=== PATIENT | female | born 1950 | race Caucasian/White ===

== ENCOUNTER 2017-12-19 10:38 | Inpatient (IN) | payer SELFPAY ==
[~2017-12-19] VITALS: Ht 170.2 cm; Wt 77.1 kg
[2017-12-19] VITALS (12 sets, daily range): BP systolic 70–93; BP diastolic 43–66
[2017-12-19] MEDS ORDERED: SODIUM CHLORIDE 0.9% 1,000 ML IV ONE (11:00)
[2017-12-19 11:20] LABS: BASOPHILS % 0.6 % (0.0-2.0); HEMATOCRIT. 39.4 % (36.0-48.0); HEMOGLOBIN. 13.2 g/dL (12.0-16.0); LYMPHOCYTES % 25.8 % (20.0-50.0); MEAN CORPUSCULAR HEMOGLOBIN 31.7 pg (28.0-32.0); MEAN CORPUSCULAR VOLUME 94.6 fL (81.0-99.0); MEAN PLATELET VOLUME 8.9 fl (7.4-10.4); MONOCYTES % 7.4 % (2.0-8.0); NEUTROPHILS % 64.2 % (40.0-76.0); PLATELET 258 x1000/uL (130-400); RED BLOOD CELL COUNT 4.16 mill/uL (4.2-5.4)
[2017-12-19 11:25] LABS: CHLORIDE 104 mEq/L (98-107)
[2017-12-19 11:27] LABS: INR 1.1; PROTHROMBIN TIME 11.4 sec (9.4-11.6)
[2017-12-19] MEDS ORDERED: GUAIFENESIN 200MG/10ML SUGAR FREE UDC PO PRN (14:00)
[2017-12-19] MEDS ORDERED: DOCUSATE SODIUM 100MG CAPSULE PO PRN (14:00)
[2017-12-19] MEDS ORDERED: ENOXAPARIN 40MG/0.4ML SYR SUBCUT SCH (14:00)
[2017-12-19] MEDS ORDERED: IPRATROPIUM/ALBUTEROL 0.5-3(2.5)MG/3ML NEB INH PRN (14:00)
[2017-12-19] MEDS ORDERED: ONDANSETRON HCL 4MG/2ML VIAL IV PRN (14:00)
[2017-12-19] MEDS ORDERED: CLONIDINE 0.1MG TABLET PO PRN (14:00)
[2017-12-19] MEDS ORDERED: MAGNESIUM/ALUMINUM HYDROXIDE/SIMETHICONE 30ML UDC PO PRN (14:00)
[2017-12-19] MEDS ORDERED: ACETAMINOPHEN 325MG TABLET PO PRN (14:00)
[2017-12-19] MEDS ORDERED: NITROGLYCERIN 0.4MG TABLET SL SL PRN (14:00)
[2017-12-19] MEDS ORDERED: DIPHENHYDRAMINE 50MG/ML VIAL IV PRN (14:00)
[2017-12-19] MEDS ORDERED: POTASSIUM CHLORIDE 20MEQ TABLET SR PO SCH ×2 (14:00→21:16)
[2017-12-19] MEDS ORDERED: NA PHOS,M-B/NA PHOS,DI-BA ENEMA 118ML PR PRN (14:00)
[2017-12-19] MEDS ORDERED: HEPARIN 25,000 UNITS PREMIX 500 ML IV SCH ×4 (16:30→23:15)
[2017-12-19] MEDS ORDERED: HEPARIN 5000 UNITS/ML VIAL IV ONE (16:30)
[2017-12-19] MEDS ORDERED: IOHEXOL-300 100 ML BOTTLE ONE (16:38)
[2017-12-19] MEDS ORDERED: HEPARIN BOLUS PRN aPTT <36 IV ×2 (18:30→23:30)
[2017-12-19] MEDS ORDERED: HEPARIN 80 UNITS/KG BOLUS IV SCH (18:30)
[2017-12-19] MEDS ORDERED: HEPARIN BOLUS PRN aPTT 37-44 IV ×2 (18:30→23:30)
[2017-12-19] MEDS ORDERED: ZOLPIDEM TARTRATE 5MG TABLET PO PRN (22:30)
[2017-12-19] MEDS ORDERED: MORPHINE SULFATE 4 MG/ML CPJ (NOT FOR IM USE) IV PRN (23:01)
[2017-12-19] MEDS ORDERED: KETOROLAC 15MG/ML VIAL IV PRN (23:02)
[2017-12-19] MEDS ORDERED: LORAZEPAM 0.5MG TABLET PO PRN (23:03)
[2017-12-20] VITALS (54 sets, daily range): BP systolic 72–142; BP diastolic 30–80
[2017-12-20] MEDS ORDERED: NOREPINEPHRINE 4 MG in SODIUM CHLORIDE 0.9% 250 ML IV PRN ×2
[2017-12-20] MEDS ORDERED: VANCOMYCIN 1,500 MG in SODIUM CHLORIDE 0.9% 250 ML IV SCH ×2
[2017-12-20] MEDS: SODIUM CHLORIDE 0.9% 1,000 ML IV SCH ×2 (01:27→13:56)
[2017-12-20] MEDS: PIPERACILLIN/TAZ 3.375G PREMIX 50 ML IV SCH ×4 (01:27→22:15)
[2017-12-20] MEDS: ALBUMIN HUMAN 25GM/100ML (25%) IV SCH ×3 (07:10→21:14)
[2017-12-20] MEDS: PANTOPRAZOLE SODIUM 40 MG/VIAL IV SCH (09:17)
[2017-12-20] MEDS: VANCOMYCIN 1 G PREMIX 200 ML IV SCH ×2 (12:03→23:18)
[2017-12-20 18:45] LABS: CLARITY URINE CLOUDY (CLEAR); COLOR URINE YELLOW (YELLOW); KETONES URINE NEGATIVE (NEGATIVE); LEUKOCYTE ESTERASE URINE 2+ (NEGATIVE); NITRITE URINE POSITIVE (NEGATIVE); OCCULT BLOOD URINE NEGATIVE (NEGATIVE); PH URINE 5.5 (4.5-8.0); PROTEIN URINE NEGATIVE (NEGATIVE); SPECIFIC GRAVITY URINE 1.035 (1.005-1.030)
[2017-12-20 19:07] LABS: *AMPHETAMINES SCREEN URINE NEGATIVE (NEGATIVE); *BARBITURATES SCREEN URINE NEGATIVE (NEGATIVE); *BENZODIAZEPINES SCREEN URINE NEGATIVE (NEGATIVE); *COCAINE SCREEN URINE NEGATIVE (NEGATIVE); CANNABINOID URINE SCREEN NEGATIVE (NEGATIVE); METHADONE URINE SCREEN NEGATIVE (NEGATIVE); OPIATES URINE SCREEN NEGATIVE (NEGATIVE); PHENCYCLIDINE URINE SCREEN NEGATIVE (NEGATIVE)
[2017-12-21] VITALS (20 sets, daily range): BP systolic 90–155; BP diastolic 51–90
[2017-12-21] MEDS: SODIUM CHLORIDE 0.9% 1,000 ML IV SCH ×3 (03:54→17:51)
[2017-12-21] MEDS: PIPERACILLIN/TAZ 3.375G PREMIX 50 ML IV SCH ×3 (05:04→23:49)
[2017-12-21] MEDS: PANTOPRAZOLE SODIUM 40 MG/VIAL IV SCH (08:24)
[2017-12-21 09:10] LABS: BASOPHILS % 1.2 % (0.0-2.0); EOSINOPHILS % 3.6 % (0.0-5.0); HEMATOCRIT. 31.1 % (36.0-48.0); HEMOGLOBIN. 10.3 g/dL (12.0-16.0); LYMPHOCYTES % 25.6 % (20.0-50.0); MEAN CORPUSCULAR HEMOGLOBIN 31.6 pg (28.0-32.0); MEAN CORPUSCULAR VOLUME 95.3 fL (81.0-99.0); MEAN PLATELET VOLUME 9.5 fl (7.4-10.4); MONOCYTES % 4.8 % (2.0-8.0); NEUTROPHILS % 64.8 % (40.0-76.0); PLATELET 196 x1000/uL (130-400); RED BLOOD CELL COUNT 3.27 mill/uL (4.2-5.4); RED CELL DISTRIBUTION WIDTH 14.9 % (11.6-14.6)
[2017-12-21 09:12] LABS: CHLORIDE 113 mEq/L (98-107)
[2017-12-21] MEDS: VANCOMYCIN 1 G PREMIX 200 ML IV SCH (11:29)
[2017-12-21] MEDS ORDERED: ENOXAPARIN 80MG/0.8ML SYR SUBCUT SCH (12:00)
[2017-12-21] MEDS: ENOXAPARIN 80MG/0.8ML SYR SUBCUT SCH (13:13)
[2017-12-21] MEDS ORDERED: WARFARIN SODIUM 5MG TABLET PO SCH (18:00)
[2017-12-22 00:20] VITALS: BP 96/51
[2017-12-22] MEDS: ENOXAPARIN 80MG/0.8ML SYR SUBCUT SCH ×2 (00:52→13:20)
[2017-12-22] MEDS: VANCOMYCIN 1 G PREMIX 200 ML IV SCH (00:53)
[2017-12-22] MEDS: SODIUM CHLORIDE 0.9% 1,000 ML IV SCH ×2 (02:09→17:43)
[2017-12-22 04:00] VITALS: BP 105/52
[2017-12-22] MEDS: PIPERACILLIN/TAZ 3.375G PREMIX 50 ML IV SCH ×3 (05:33→22:09)
[2017-12-22] MEDS: TRAMADOL 50MG TABLET PO PRN ×2 (05:44→20:54)
[2017-12-22 07:35] LABS: INR 1.2; PROTHROMBIN TIME 12.7 sec (9.4-11.6)
[2017-12-22 08:00] VITALS: BP 111/62
[2017-12-22] MEDS: PANTOPRAZOLE SODIUM 40 MG/VIAL IV SCH (08:23)
[2017-12-22 12:00] VITALS: BP 99/64
[2017-12-22 16:00] VITALS: BP 117/49
[2017-12-22] MEDS: VANCOMYCIN 1,250 MG in SODIUM CHLORIDE 0.9% 250 ML IV SCH (17:24)
[2017-12-22] MEDS ORDERED: WARFARIN SODIUM 7.5MG TABLET PO SCH (18:00)
[2017-12-22 20:00] VITALS: BP 86/52
[2017-12-23] VITALS: BP 90/48
[2017-12-23] MEDS: ENOXAPARIN 80MG/0.8ML SYR SUBCUT SCH ×2 (00:32→12:51)
[2017-12-23] MEDS: SODIUM CHLORIDE 0.9% 1,000 ML IV SCH ×2 (03:43→12:49)
[2017-12-23 04:00] VITALS: BP 101/65
[2017-12-23] MEDS: PIPERACILLIN/TAZ 3.375G PREMIX 50 ML IV SCH ×3 (05:37→22:21)
[2017-12-23 06:14] LABS: INR 1.6; PROTHROMBIN TIME 16.6 sec (9.4-11.6)
[2017-12-23 08:00] VITALS: BP 98/48
[2017-12-23] MEDS: FAMOTIDINE 20MG TABLET PO SCH ×2 (08:26→20:07)
[2017-12-23 12:00] VITALS: BP 99/51
[2017-12-23] MEDS: VANCOMYCIN 1,250 MG in SODIUM CHLORIDE 0.9% 250 ML IV SCH (12:50)
[2017-12-23 16:00] VITALS: BP 110/60
[2017-12-23] MEDS: TRAMADOL 50MG TABLET PO PRN (17:26)
[2017-12-23 20:00] VITALS: BP 98/59
[2017-12-24] VITALS: BP 120/74
[2017-12-24] MEDS: ENOXAPARIN 80MG/0.8ML SYR SUBCUT SCH ×2 (00:56→12:49)
[2017-12-24 04:00] VITALS: BP 120/72
[2017-12-24 04:07] LABS: BASOPHILS % 0.8 % (0.0-2.0); EOSINOPHILS % 3.6 % (0.0-5.0); HEMOGLOBIN. 9.8 g/dL (12.0-16.0); LYMPHOCYTES % 25.6 % (20.0-50.0); MEAN CORPUSCULAR HEMOGLOBIN 32.1 pg (28.0-32.0); MEAN CORPUSCULAR VOLUME 95.3 fL (81.0-99.0); MEAN PLATELET VOLUME 9.3 fl (7.4-10.4); MONOCYTES % 7.5 % (2.0-8.0); NEUTROPHILS % 62.5 % (40.0-76.0); PLATELET 238 x1000/uL (130-400); RED BLOOD CELL COUNT 3.04 mill/uL (4.2-5.4)
[2017-12-24 04:18] LABS: VANCOMYCIN TROUGH 23.2 ug/mL (5.0-10.0)
[2017-12-24] MEDS: TRAMADOL 50MG TABLET PO PRN ×2 (04:38→16:08)
[2017-12-24] MEDS: SODIUM CHLORIDE 0.9% 1,000 ML IV SCH ×3 (05:40→18:54)
[2017-12-24] MEDS: VANCOMYCIN 1,250 MG in SODIUM CHLORIDE 0.9% 250 ML IV SCH (05:40)
[2017-12-24] MEDS: PIPERACILLIN/TAZ 3.375G PREMIX 50 ML IV SCH ×3 (05:40→21:32)
[2017-12-24 08:00] VITALS: BP 109/67
[2017-12-24] MEDS: FAMOTIDINE 20MG TABLET PO SCH ×2 (08:24→20:30)
[2017-12-24 12:00] VITALS: BP 95/58
[2017-12-24] MEDS ORDERED: POTASSIUM CHLORIDE 20MEQ TABLET SR PO NR (12:30)
[2017-12-24 16:00] VITALS: BP 106/54
[2017-12-24 20:00] VITALS: BP 109/73
[2017-12-25] VITALS (7 sets, daily range): BP systolic 93–119; BP diastolic 52–70
[2017-12-25] MEDS: ENOXAPARIN 80MG/0.8ML SYR SUBCUT SCH ×2 (01:00→14:31)
[2017-12-25] MEDS: VANCOMYCIN 1 G PREMIX 200 ML IV SCH ×2 (02:22→20:47)
[2017-12-25] MEDS ORDERED: TRAMADOL 50MG TABLET PO PRN ×2 (05:30→19:00)
[2017-12-25] MEDS: PIPERACILLIN/TAZ 3.375G PREMIX 50 ML IV SCH ×3 (05:37→22:25)
[2017-12-25] MEDS: SODIUM CHLORIDE 0.9% 1,000 ML IV SCH ×2 (06:37→18:07)
[2017-12-25] MEDS: FAMOTIDINE 20MG TABLET PO SCH ×2 (08:11→20:47)
[2017-12-25] MEDS ORDERED: KETOROLAC 15MG/ML VIAL IV PRN (19:00)
[2017-12-26] MEDS: ENOXAPARIN 80MG/0.8ML SYR SUBCUT SCH ×2 (00:30→16:30)
[2017-12-26 04:00] VITALS: BP 123/69
[2017-12-26] MEDS: PIPERACILLIN/TAZ 3.375G PREMIX 50 ML IV SCH ×3 (05:29→21:03)
[2017-12-26 08:00] VITALS: BP 119/69
[2017-12-26] MEDS: SODIUM CHLORIDE 0.9% 1,000 ML IV SCH ×2 (09:02→19:35)
[2017-12-26] MEDS: FAMOTIDINE 20MG TABLET PO SCH ×2 (09:03→21:03)
[2017-12-26 11:59] VITALS: BP 118/68
[2017-12-26] MEDS: VANCOMYCIN 1 G PREMIX 200 ML IV SCH (15:00)
[2017-12-26 16:00] VITALS: BP 131/70
[2017-12-26 20:00] VITALS: BP 130/62
[2017-12-27] VITALS: BP 128/66
[2017-12-27] MEDS: ENOXAPARIN 80MG/0.8ML SYR SUBCUT SCH ×2 (01:22→13:54)
[2017-12-27 04:00] VITALS: BP 117/72
[2017-12-27] MEDS: CLINDAMYCIN HCL 150MG CAPSULE PO SCH ×3 (05:31→21:08)
[2017-12-27] MEDS: SODIUM CHLORIDE 0.9% 1,000 ML IV SCH ×2 (07:45→08:16)
[2017-12-27 08:00] VITALS: BP 99/69
[2017-12-27] MEDS: FAMOTIDINE 20MG TABLET PO SCH ×2 (08:15→21:08)
[2017-12-27 12:36] VITALS: BP 120/63
[2017-12-27 16:28] VITALS: BP 114/81
[2017-12-27 20:00] VITALS: BP 140/64
[2017-12-28] VITALS: BP 135/66
[2017-12-28] MEDS: ENOXAPARIN 80MG/0.8ML SYR SUBCUT SCH ×2 (00:23→12:22)
[2017-12-28 04:00] VITALS: BP 107/78
[2017-12-28] MEDS: SODIUM CHLORIDE 0.9% 1,000 ML IV SCH ×3 (04:02→21:46)
[2017-12-28] MEDS: CLINDAMYCIN HCL 150MG CAPSULE PO SCH ×3 (05:49→21:15)
[2017-12-28 08:00] VITALS: BP 103/59
[2017-12-28] MEDS: FAMOTIDINE 20MG TABLET PO SCH ×2 (08:28→21:15)
[2017-12-28 12:00] VITALS: BP 125/64
[2017-12-28 16:26] VITALS: BP 117/65
[2017-12-28 20:00] VITALS: BP 135/63
[2017-12-29] VITALS: BP 121/80
[2017-12-29] MEDS: ENOXAPARIN 80MG/0.8ML SYR SUBCUT SCH ×2 (01:01→12:14)
[2017-12-29 04:00] VITALS: BP 154/82
[2017-12-29] MEDS: CLINDAMYCIN HCL 150MG CAPSULE PO SCH ×3 (06:12→20:58)
[2017-12-29 08:20] VITALS: BP 123/67
[2017-12-29] MEDS: FAMOTIDINE 20MG TABLET PO SCH ×2 (08:34→20:58)
[2017-12-29] MEDS: SODIUM CHLORIDE 0.9% 1,000 ML IV SCH (08:35)
[2017-12-29 11:52] VITALS: BP 149/62
[2017-12-29 16:15] VITALS: BP 139/77
[2017-12-29 20:00] VITALS: BP 122/74
[2017-12-30] VITALS: BP 126/75
[2017-12-30] MEDS: ENOXAPARIN 80MG/0.8ML SYR SUBCUT SCH ×2 (00:56→12:37)
[2017-12-30 04:00] VITALS: BP 140/62
[2017-12-30] MEDS: CLINDAMYCIN HCL 150MG CAPSULE PO SCH ×3 (05:44→21:08)
[2017-12-30 08:00] VITALS: BP 123/65
[2017-12-30] MEDS: FAMOTIDINE 20MG TABLET PO SCH ×2 (09:06→21:08)
[2017-12-30 11:57] VITALS: BP 104/83
[2017-12-30 16:00] VITALS: BP 128/66
[2017-12-30 20:00] VITALS: BP_SYST 118; BP_SYST 152; BP_DIAS 65; BP_DIAS 82
[2017-12-31] VITALS: BP 120/80
[2017-12-31] MEDS: ENOXAPARIN 80MG/0.8ML SYR SUBCUT SCH ×2 (00:30→12:43)
[2017-12-31 04:00] VITALS: BP 117/67
[2017-12-31] MEDS: CLINDAMYCIN HCL 150MG CAPSULE PO SCH ×3 (05:11→21:36)
[2017-12-31 08:00] VITALS: BP 101/44
[2017-12-31] MEDS: FAMOTIDINE 20MG TABLET PO SCH ×2 (08:52→21:36)
[2017-12-31 12:00] VITALS: BP 121/68
[2017-12-31 16:00] VITALS: BP 135/52
[2017-12-31 20:00] VITALS: BP 106/59
[2018-01-01] VITALS: BP 103/70
[2018-01-01] MEDS: ENOXAPARIN 80MG/0.8ML SYR SUBCUT SCH ×2 (00:09→13:34)
[2018-01-01 04:00] VITALS: BP 130/80
[2018-01-01] MEDS: CLINDAMYCIN HCL 150MG CAPSULE PO SCH ×3 (05:19→20:48)
[2018-01-01 07:25] LABS: HEMATOCRIT. 27.5 % (36.0-48.0); HEMOGLOBIN. 9.2 g/dL (12.0-16.0); LYMPHOCYTES % 27.8 % (20.0-50.0); MEAN CORPUSCULAR HEMOGLOBIN 31.1 pg (28.0-32.0); MEAN CORPUSCULAR VOLUME 93.4 fL (81.0-99.0); MEAN PLATELET VOLUME 9.9 fl (7.4-10.4); MONOCYTES % 7.3 % (2.0-8.0); NEUTROPHILS % 55.9 % (40.0-76.0); PLATELET 254 x1000/uL (130-400); RED BLOOD CELL COUNT 2.95 mill/uL (4.2-5.4); RED CELL DISTRIBUTION WIDTH 15.1 % (11.6-14.6)
[2018-01-01 07:38] LABS: CHLORIDE 110 mEq/L (98-107)
[2018-01-01 08:00] VITALS: BP 137/69
[2018-01-01] MEDS: FAMOTIDINE 20MG TABLET PO SCH ×2 (09:37→20:48)
[2018-01-01] MEDS ORDERED: POTASSIUM CHLORIDE 20MEQ TABLET SR PO NR (10:00)
[2018-01-01] MEDS ORDERED: POTASSIUM CHLORIDE INJ 60 MEQ in DEXT 5% WATER 500 ML IV NR (11:00)
[2018-01-01 12:00] VITALS: BP 123/55
[2018-01-01 16:00] VITALS: BP 100/60
[2018-01-01] MEDS ORDERED: SODIUM CHL 0.45% + KCL 20MEQ/L 1,000 ML IV SCH (16:00)
[2018-01-01 20:00] VITALS: BP 104/58
[2018-01-02] VITALS: BP_SYST 103; BP_SYST 133; BP_DIAS 60; BP_DIAS 74
[2018-01-02] MEDS: ENOXAPARIN 80MG/0.8ML SYR SUBCUT SCH ×2 (00:45→12:53)
[2018-01-02 04:00] VITALS: BP 102/56
[2018-01-02] MEDS: CLINDAMYCIN HCL 150MG CAPSULE PO SCH ×2 (06:07→15:33)
[2018-01-02] MEDS: FAMOTIDINE 20MG TABLET PO SCH (09:05)
[2018-01-02] MEDS ORDERED: MAGNESIUM 2 G PREMIX 50 ML IV NR (10:30)
[2018-01-02 12:00] VITALS: BP 122/64
[2018-01-02 16:00] VITALS: BP 125/62
[2018-01-02 16:37] VITALS: BP 125/62
== END 2018-01-02 18:27 | disposition home or self-care (01) | DRG 134 ==
LOC: ER 10:42 → MICUNO 13:17 → CANRESERV 14:34 → ENRESERV 14:34 → CANRESERV 14:52 → EDBEDREQSVC 15:44 → EDBEDREQ 15:44 → ENRESERV 16:32 → 8WST 12-21 14:36
PROVIDERS: ADMIT Internal Medicine; ATTEND Internal Medicine
DX: I26.99 Other pulmonary embolism without acute cor pulmonale (principal); J96.00 Acute respiratory failure, unspecified whether with hypoxia or hypercapnia; E43 Unspecified severe protein-calorie malnutrition; I95.9 Hypotension, unspecified; D68.59 Other primary thrombophilia; I82.412 Acute embolism and thrombosis of left femoral vein; E87.6 Hypokalemia; I10 Essential (primary) hypertension; F17.210 Nicotine dependence, cigarettes, uncomplicated; Z85.3 Personal history of malignant neoplasm of breast; Z68.26 Body mass index [BMI] 26.0-26.9, adult
CPT/HCPCS: 36415; 71045; 71270; 80048; 80053; 80202; 80305; 81003; 82550; 82553; 83036; 83605; 83735; 84484; 85025; 85610; 85730; 87086; 93005; 93306; 93970; 94618; 96365; 97162; 99285; C1893; C9113; J1644; J1650; J1885; J2543; J3370; J3475; J3480; J7030; J7050; J7060; P9047; Q9967

== ENCOUNTER 2018-08-22 17:46 | Emergency (ER) | payer MEDICAID, MEDICARE ==
[~2018-08-22] VITALS: Ht 162.6 cm; Wt 60.0 kg
[2018-08-22] MEDS ORDERED: BACITRACIN 15GM TUBE TOP ONE (18:45)
[2018-08-22 20:12] VITALS: BP 120/83
== END 2018-08-22 20:28 | disposition home or self-care (01) ==
LOC: ER 17:46
DX: Z48.00 Encounter for change or removal of nonsurgical wound dressing (principal); C50.911 Malignant neoplasm of unspecified site of right female breast; C79.9 Secondary malignant neoplasm of unspecified site; R58 Hemorrhage, not elsewhere classified
CPT/HCPCS: 99283

== ENCOUNTER 2018-09-21 14:47 | Inpatient (IN) | payer MEDICARE, MEDICAID ==
[~2018-09-21] VITALS: Ht 160 cm; Wt 56.7 kg
[2018-09-21] MEDS ORDERED: FENTANYL CITRATE/PF 50MCG/ML 2ML VIAL IV ONE (15:30)
[2018-09-21] MEDS ORDERED: SODIUM CHLORIDE 0.9% 1000ML BAG (SEPSIS BOLUS) IV ONE (15:30)
[2018-09-21] MEDS ORDERED: LEVOFLOXACIN 750MG PREMIX 150 ML IV ONE (15:30)
[2018-09-21] MEDS ORDERED: VANCOMYCIN 1 G PREMIX 200 ML IV ONE (15:30)
[2018-09-21 16:31] LABS: BASOPHILS % 0.1 % (0.0-2.0); HEMATOCRIT. 37.8 % (36.0-48.0); HEMOGLOBIN. 12.2 g/dL (12.0-16.0); LYMPHOCYTES % 8.5 % (20.0-50.0); MEAN CORPUSCULAR HEMOGLOBIN 28.3 pg (28.0-32.0); MEAN CORPUSCULAR VOLUME 87.8 fL (81.0-99.0); MEAN PLATELET VOLUME 8.4 fl (7.4-10.4); MONOCYTES % 4.4 % (2.0-8.0); PLATELET 529 x1000/uL (130-400)
[2018-09-21 16:39] LABS: INR 1.5; PROTHROMBIN TIME 15.2 sec (9.1-11.1)
[2018-09-21 17:19] LABS: CHLORIDE 98 mEq/L (98-107)
[2018-09-21] MEDS ORDERED: MAGNESIUM/ALUMINUM HYDROXIDE/SIMETHICONE 30ML UDC PO PRN (20:45)
[2018-09-21] MEDS ORDERED: HYDROCODONE/ACETAMINOPHEN 5/325MG TABLET PO PRN (20:45)
[2018-09-21] MEDS ORDERED: IPRATROPIUM/ALBUTEROL 0.5-3(2.5)MG/3ML NEB INH PRN (20:45)
[2018-09-21] MEDS ORDERED: ACETAMINOPHEN 325MG TABLET PO PRN (20:45)
[2018-09-21] MEDS ORDERED: DIPHENHYDRAMINE 50MG/ML VIAL IV PRN (20:45)
[2018-09-21] MEDS ORDERED: ACETAMINOPHEN 650MG SUPP PR PRN (20:45)
[2018-09-21] MEDS ORDERED: HYDROCODONE/ACETAMINOPHEN 10/325MG TABLET PO PRN (20:45)
[2018-09-21] MEDS ORDERED: CLONIDINE 0.1MG TABLET PO PRN (20:45)
[2018-09-21] MEDS ORDERED: ONDANSETRON HCL 4MG/2ML INJ IV PRN (20:45)
[2018-09-21] MEDS ORDERED: ACETAMINOPHEN 650MG/20.3ML UDC GT PRN (20:45)
[2018-09-21] MEDS ORDERED: DOCUSATE SODIUM 100MG CAPSULE PO PRN (20:45)
[2018-09-21] MEDS ORDERED: GUAIFENESIN 200MG/10ML SUGAR FREE UDC PO PRN (20:45)
[2018-09-21] MEDS ORDERED: MORPHINE SULFATE 2 MG/ML CPJ (NOT FOR IM USE) IV PRN (21:00)
[2018-09-21] MEDS ORDERED: NA PHOS,M-B/NA PHOS,DI-BA ENEMA 118ML PR PRN (21:00)
[2018-09-21] MEDS: SODIUM CHLORIDE 0.9% INJ 3ML FLUSH IVF SCH (22:00)
[2018-09-21 22:30] VITALS: BP 104/50
[2018-09-21] MEDS ORDERED: NOREPINEPHRINE 4 MG in DEXT 5% WATER 246 ML IV SCH ×4 (23:00)
[2018-09-21] MEDS ORDERED: ALBUMIN HUMAN 25GM/100ML (25%) IV SCH (23:00)
[2018-09-21] MEDS: PIPERACILLIN/TAZ 3.375G PREMIX 50 ML IV SCH (23:14)
[2018-09-21] MEDS: SODIUM CHLORIDE 0.9% 1,000 ML IV SCH (23:15)
[2018-09-21] MEDS ORDERED: SODIUM CHLORIDE 0.9% 500 ML IV ONE (23:45)
[2018-09-22] VITALS (87 sets, daily range): BP systolic 53–147; BP diastolic 26–95
[2018-09-22] MEDS ORDERED: XAR15 PO (00:45)
[2018-09-22] MEDS ORDERED: ANAS1TAB7 PO (00:45)
[2018-09-22] MEDS ORDERED: SENN8.6T71 PO (00:45)
[2018-09-22] MEDS ORDERED: HYDR-3281 PO (00:45)
[2018-09-22] MEDS ORDERED: ONDA4TAB5 PO (00:46)
[2018-09-22] MEDS ORDERED: CEPH500T PO (00:47)
[2018-09-22] MEDS: METRONIDAZOLE 500 MG PREMIX 100 ML IV SCH ×3 (01:39→17:14)
[2018-09-22] MEDS: MORPHINE SULFATE 4 MG/ML CPJ (NOT FOR IM USE) IV PRN ×2 (03:22→15:15)
[2018-09-22] MEDS: VANCOMYCIN 750 MG PREMIX 150 ML IV SCH ×2 (03:22→14:58)
[2018-09-22 05:12] LABS: BASOPHILS % 0.2 % (0.0-2.0); EOSINOPHILS % 0.2 % (0.0-5.0); HEMATOCRIT. 27.6 % (36.0-48.0); HEMOGLOBIN. 9.1 g/dL (12.0-16.0); LYMPHOCYTES % 13.3 % (20.0-50.0); MEAN CORPUSCULAR VOLUME 87.6 fL (81.0-99.0); MEAN PLATELET VOLUME 7.9 fl (7.4-10.4); MONOCYTES % 7.7 % (2.0-8.0); NEUTROPHILS % 78.6 % (40.0-76.0); PLATELET 403 x1000/uL (130-400); RED BLOOD CELL COUNT 3.15 mill/uL (4.2-5.4); RED CELL DISTRIBUTION WIDTH 16.3 % (11.6-14.6)
[2018-09-22 05:15] LABS: CHLORIDE 101 mEq/L (98-107)
[2018-09-22 05:28] LABS: LDL CHOLESTEROL 37 mg/dL (5-100)
[2018-09-22 05:30] LABS: HDL CHOLESTEROL 39 mg/dL (40-59)
[2018-09-22] MEDS: PIPERACILLIN/TAZ 3.375G PREMIX 50 ML IV SCH ×3 (06:17→23:53)
[2018-09-22] MEDS: SODIUM CHLORIDE 0.9% INJ 3ML FLUSH IVF SCH ×3 (06:17→21:52)
[2018-09-22] MEDS ORDERED: LEVOFLOXACIN 250MG PREMIX 50 ML IV SCH (11:15)
[2018-09-22] MEDS: SODIUM CHLORIDE 0.9% 1,000 ML IV SCH (13:40)
[2018-09-22] MEDS ORDERED: IOHEXOL-350 100 ML BOTTLE ONE (14:48)
[2018-09-22] MEDS ORDERED: RIVAROXABAN 15 MG TABLET PO SCH (17:00)
[2018-09-22] MEDS: SENNOSIDES 8.6MG TABLET PO SCH (17:14)
[2018-09-22] MEDS: ANASTROZOLE 1 MG TABLET PO SCH (17:15)
[2018-09-22 18:16] LABS: CREATINE KINASE 72 IU/L (26-192)
[2018-09-22 18:17] LABS: T4 FREE 0.64 ng/dL (0.76-1.46)
[2018-09-22] MEDS: NOREPINEPHRINE 8 MG in DEXT 5% WATER 492 ML IV PRN (23:53)
[2018-09-22 23:58] LABS: CREATINE KINASE MB FRACTION 2.2 ng/mL (0.5-3.6)
[2018-09-22 23:59] LABS: CREATINE KINASE 80 IU/L (26-192)
[2018-09-23] VITALS (98 sets, daily range): BP systolic 61–149; BP diastolic 24–98
[2018-09-23] MEDS: METRONIDAZOLE 500 MG PREMIX 100 ML IV SCH ×3 (01:11→19:15)
[2018-09-23] MEDS: VANCOMYCIN 750 MG PREMIX 150 ML IV SCH ×2 (03:19→15:53)
[2018-09-23] MEDS: MORPHINE SULFATE 4 MG/ML CPJ (NOT FOR IM USE) IV PRN (03:20)
[2018-09-23] MEDS: SODIUM CHLORIDE 0.9% INJ 3ML FLUSH IVF SCH ×3 (05:20→22:01)
[2018-09-23] MEDS: PIPERACILLIN/TAZ 3.375G PREMIX 50 ML IV SCH ×3 (05:21→22:01)
[2018-09-23 06:45] LABS: CREATINE KINASE 35 IU/L (26-192)
[2018-09-23 06:47] LABS: CREATINE KINASE MB FRACTION < 1.0 ng/mL (0.5-3.6)
[2018-09-23 07:44] LABS: CLARITY URINE CLOUDY (CLEAR); COLOR URINE YELLOW (YELLOW); KETONES URINE NEGATIVE (NEGATIVE); LEUKOCYTE ESTERASE URINE NEGATIVE (NEGATIVE); NITRITE URINE NEGATIVE (NEGATIVE); OCCULT BLOOD URINE TRACE (NEGATIVE); PROTEIN URINE NEGATIVE (NEGATIVE); SPECIFIC GRAVITY URINE 1.037 (1.005-1.030); UROBILINOGEN URINE 0.2 E.U./dL (0.2-1.0)
[2018-09-23] MEDS: MIDODRINE HCL 5MG TABLET PO SCH ×3 (09:33→17:09)
[2018-09-23] MEDS: ANASTROZOLE 1 MG TABLET PO SCH (09:33)
[2018-09-23] MEDS ORDERED: LIDOCAINE HCL 1% 20ML VIAL (Pyxis) INJ ONE (12:35)
[2018-09-23] MEDS: SODIUM CHLORIDE 0.9% 1,000 ML IV SCH (13:00)
[2018-09-23] MEDS: SODIUM HYPOCHLORITE 0.125% 473ML SOLUTION TOP SCH (14:00)
[2018-09-23 15:41] LABS: BASOPHILS % 0.2 % (0.0-2.0); EOSINOPHILS % 0.5 % (0.0-5.0); HEMATOCRIT. 32.7 % (36.0-48.0); HEMOGLOBIN. 10.3 g/dL (12.0-16.0); LYMPHOCYTES % 16.7 % (20.0-50.0); MEAN CORPUSCULAR VOLUME 88.7 fL (81.0-99.0); MEAN PLATELET VOLUME 7.6 fl (7.4-10.4); MONOCYTES % 7.1 % (2.0-8.0); NEUTROPHILS % 75.5 % (40.0-76.0); PLATELET 394 x1000/uL (130-400); RED BLOOD CELL COUNT 3.69 mill/uL (4.2-5.4); RED CELL DISTRIBUTION WIDTH 16.7 % (11.6-14.6)
[2018-09-23 15:59] LABS: CHLORIDE 102 mEq/L (98-107)
[2018-09-23] MEDS: RIVAROXABAN 10 MG TABLET PO SCH (19:14)
[2018-09-23] MEDS: SENNOSIDES 8.6MG TABLET PO SCH (19:15)
[2018-09-24] VITALS (99 sets, daily range): BP systolic 74–138; BP diastolic 25–89
[2018-09-24] MEDS: SODIUM CHLORIDE 0.9% 1,000 ML IV SCH ×2 (01:06→15:40)
[2018-09-24] MEDS: METRONIDAZOLE 500 MG PREMIX 100 ML IV SCH ×3 (01:33→17:34)
[2018-09-24] MEDS: VANCOMYCIN 750 MG PREMIX 150 ML IV SCH ×2 (02:50→21:29)
[2018-09-24] MEDS: NOREPINEPHRINE 8 MG in DEXT 5% WATER 492 ML IV PRN (05:14)
[2018-09-24] MEDS: PIPERACILLIN/TAZ 3.375G PREMIX 50 ML IV SCH ×3 (06:05→23:29)
[2018-09-24] MEDS: SODIUM CHLORIDE 0.9% INJ 3ML FLUSH IVF SCH (06:05)
[2018-09-24] MEDS: SODIUM HYPOCHLORITE 0.125% 473ML SOLUTION TOP SCH (08:54)
[2018-09-24] MEDS: MIDODRINE HCL 5MG TABLET PO SCH ×3 (09:05→16:41)
[2018-09-24] MEDS: ANASTROZOLE 1 MG TABLET PO SCH (09:05)
[2018-09-24] MEDS ORDERED: MIDO5TAB PO (09:07)
[2018-09-24] MEDS ORDERED: RIVA10TA PO (09:07)
[2018-09-24] MEDS ORDERED: PIPE3.376 IV (09:10)
[2018-09-24] MEDS ORDERED: ALBUMIN HUMAN 25GM/100ML (25%) IV SCH (09:15)
[2018-09-24 13:11] LABS: BASOPHILS % 0.3 % (0.0-2.0); EOSINOPHILS % 0.8 % (0.0-5.0); LYMPHOCYTES % 17.2 % (20.0-50.0); MEAN CORPUSCULAR HEMOGLOBIN 29.3 pg (28.0-32.0); MEAN CORPUSCULAR VOLUME 89.1 fL (81.0-99.0); MEAN PLATELET VOLUME 8.1 fl (7.4-10.4); MONOCYTES % 6.3 % (2.0-8.0); NEUTROPHILS % 75.4 % (40.0-76.0); PLATELET 199 x1000/uL (130-400); RED BLOOD CELL COUNT 2.06 mill/uL (4.2-5.4); RED CELL DISTRIBUTION WIDTH 16.2 % (11.6-14.6)
[2018-09-24 13:12] LABS: CHLORIDE 105 mEq/L (98-107)
[2018-09-24 13:23] LABS: HEMATOCRIT. 18.4 % (36.0-48.0)
[2018-09-24] MEDS: RIVAROXABAN 10 MG TABLET PO SCH (16:41)
[2018-09-24] MEDS: SENNOSIDES 8.6MG TABLET PO SCH (16:41)
[2018-09-25] VITALS (46 sets, daily range): BP systolic 74–149; BP diastolic 26–80
[2018-09-25] MEDS: METRONIDAZOLE 500 MG PREMIX 100 ML IV SCH ×2 (01:47→09:50)
[2018-09-25] MEDS: MORPHINE SULFATE 4 MG/ML CPJ (NOT FOR IM USE) IV PRN (04:31)
[2018-09-25] MEDS: PIPERACILLIN/TAZ 3.375G PREMIX 50 ML IV SCH ×2 (06:43→13:21)
[2018-09-25] MEDS: MIDODRINE HCL 5MG TABLET PO SCH ×2 (08:12→13:22)
[2018-09-25] MEDS: ANASTROZOLE 1 MG TABLET PO SCH (08:12)
[2018-09-25 09:00] LABS: BASOPHILS % 0.3 % (0.0-2.0); EOSINOPHILS % 0.4 % (0.0-5.0); HEMATOCRIT. 34.7 % (36.0-48.0); HEMOGLOBIN. 11.4 g/dL (12.0-16.0); LYMPHOCYTES % 15.7 % (20.0-50.0); MEAN CORPUSCULAR HEMOGLOBIN 28.3 pg (28.0-32.0); MEAN CORPUSCULAR VOLUME 86.4 fL (81.0-99.0); MEAN PLATELET VOLUME 7.4 fl (7.4-10.4); MONOCYTES % 4.7 % (2.0-8.0); NEUTROPHILS % 78.9 % (40.0-76.0); PLATELET 326 x1000/uL (130-400); RED BLOOD CELL COUNT 4.02 mill/uL (4.2-5.4); RED CELL DISTRIBUTION WIDTH 16.1 % (11.6-14.6)
[2018-09-25] MEDS: SODIUM HYPOCHLORITE 0.125% 473ML SOLUTION TOP SCH (09:00)
[2018-09-25 09:09] LABS: CHLORIDE 105 mEq/L (98-107)
[2018-09-25] MEDS ORDERED: POTASSIUM CHLORIDE 20MEQ TABLET SR PO NR ×2 (09:30→15:00)
[2018-09-25] MEDS: SODIUM CHLORIDE 0.9% 1,000 ML IV SCH (09:57)
[2018-09-25] MEDS ORDERED: MAGNESIUM 2 G PREMIX 50 ML IV SCH (12:00)
[2018-09-25] MEDS: SODIUM CHLORIDE 0.9% INJ 3ML FLUSH IVF SCH (13:19)
[2018-09-25] MEDS: VANCOMYCIN 750 MG PREMIX 150 ML IV SCH (15:21)
== END 2018-09-25 16:30 | DRG 871 ==
LOC: ER 14:47 → 3WST 18:38 → EDBEDREQ 18:42 → ENRESERV 20:34 → MICUSO 09-22 00:19
PROVIDERS: ADMIT Family Medicine; ATTEND Family Medicine
PROC: 02HV33Z Insertion of Infusion Device into Superior Vena Cava, Percutaneous Approach (ICD-10-PCS; principal; 2018-09-23)
PROC: B548ZZA Ultrasonography of Superior Vena Cava, Guidance (ICD-10-PCS; 2018-09-23)
PROC: 30233N1 Transfusion of Nonautologous Red Blood Cells into Peripheral Vein, Percutaneous Approach (ICD-10-PCS; 2018-09-24)
DX: A41.9 Sepsis, unspecified organism (principal); E43 Unspecified severe protein-calorie malnutrition; R65.21 Severe sepsis with septic shock; N39.0 Urinary tract infection, site not specified; E87.1 Hypo-osmolality and hyponatremia; C78.00 Secondary malignant neoplasm of unspecified lung; Z66 Do not resuscitate; G89.3 Neoplasm related pain (acute) (chronic); L89.150 Pressure ulcer of sacral region, unstageable; C50.911 Malignant neoplasm of unspecified site of right female breast; E86.0 Dehydration; D63.0 Anemia in neoplastic disease; I95.9 Hypotension, unspecified; E87.6 Hypokalemia; Z88.1 Allergy status to other antibiotic agents; Z79.1 Long term (current) use of non-steroidal anti-inflammatories (NSAID); Z79.899 Other long term (current) drug therapy; Z68.22 Body mass index [BMI] 22.0-22.9, adult; Z86.711 Personal history of pulmonary embolism
CPT/HCPCS: 36415; 36569; 71045; 71275; 76937; 80048; 80061; 80202; 82550; 82553; 83036; 83605; 83735; 83880; 84134; 84439; 84443; 84484; 85379; 86850; 86900; 86920; 87070; 87077; 87186; 93005; 93970; 93971; 96365; 96366; 96368; 96375; 99291; A6261; C1725; C1893; J1200; J1956; J2270; J2543; J3010; J3370; J3475; J3490; J7030; J7040; J7050; J7060; P9016; P9047; Q9967

== ENCOUNTER 2018-10-23 10:52 | Inpatient (IN) | payer MEDICARE, MEDICAID ==
[~2018-10-23] VITALS: Ht 165.1 cm; Wt 64.9 kg
[~2018-10-23 10:52] MED LIST: ANAS1TAB7 PO; MIDO5TAB PO; PIPE3.376 IV; RIVA10TA PO; SENN8.6T71 PO
[2018-10-23] MEDS ORDERED: VANCOMYCIN 1 G PREMIX 200 ML IV SCH ×2 (11:15→23:00)
[2018-10-23] MEDS ORDERED: SODIUM CHLORIDE 0.9% 1000ML BAG (SEPSIS BOLUS) IV ONE (11:15)
[2018-10-23] MEDS ORDERED: VANCOMYCIN 1 G PREMIX 200 ML IV ONE (11:15)
[2018-10-23] MEDS ORDERED: IPRATROPIUM BROMIDE (0.02%) 0.5MG/2.5ML NEB HHN STA (12:09)
[2018-10-23] MEDS ORDERED: ALBUTEROL (0.083%) 2.5MG/3ML NEB HHN STA (12:09)
[2018-10-23] MEDS ORDERED: CLINDAMYCIN 600 MG in DEXTROSE 5% WATER 50 ML IV ONE (12:15)
[2018-10-23] MEDS ORDERED: LEVOFLOXACIN 500MG PREMIX 100 ML IV ONE (12:15)
[2018-10-23 12:23] LABS: BG BASE EXCESS -11.2 mmol/L (-2.0-2.0); BG CARBOXYHEMOGLOBIN 0.2 % (0.5-1.5); BG DEOXYHEMOGLOBIN 24.6 % (0.0-5.0); BG FRACTION INSPIRED OXYGEN 36; BG HCO3 ACT 14.2 mmol/L (22.0-26.0); BG METHEMOGLOBIN 0.3 % (0.0-1.5); BG OXYGEN SATURATION 75.3 % (92.0-98.5); BG OXYHEMOGLOBIN 74.9 % (94.0-97.0); BG PCO2 30.3 mmHg (35.0-45.0); BG PH 7.288 (7.350-7.450); BG PO2 47.5 mmHg (75.0-100.0); BG SAMPLE SITE RIGHT RADIAL; BG TOTAL HEMOGLOBIN 11.1 g/dL (12.0-18.0); BG VENT MODE NASAL CANNULA
[2018-10-23 15:09] LABS: HEMOGLOBIN. 10.7 g/dL (12.0-16.0); MEAN CORPUSCULAR HEMOGLOBIN 28.5 pg (28.0-32.0); MEAN CORPUSCULAR VOLUME 90.5 fL (81.0-99.0); MEAN PLATELET VOLUME 8.1 fl (7.4-10.4); PLATELET 363 x1000/uL (130-400); RED BLOOD CELL COUNT 3.76 mill/uL (4.2-5.4); RED CELL DISTRIBUTION WIDTH 17.4 % (11.6-14.6)
[2018-10-23 15:12] LABS: CHLORIDE 98 mEq/L (98-107)
[2018-10-23 15:23] LABS: INR 1.2
[2018-10-23 16:13] LABS: PLATELET ESTIMATE NORMAL
[2018-10-23] MEDS ORDERED: SODIUM BICARBONATE 8.4% 1 MEQ/ML 50ML SYR IV ONE (16:15)
[2018-10-23] MEDS ORDERED: IPRATROPIUM/ALBUTEROL 0.5-3(2.5)MG/3ML NEB HHN SCH (18:00)
[2018-10-23] MEDS ORDERED: GUAIFENESIN 200MG/10ML SUGAR FREE UDC PO PRN (18:00)
[2018-10-23] MEDS ORDERED: MORPHINE SULFATE 4 MG/ML CPJ (NOT FOR IM USE) IV PRN ×2 (18:00→22:32)
[2018-10-23] MEDS ORDERED: PIPERACILLIN/TAZ 3.375G PREMIX 50 ML IV SCH (18:00)
[2018-10-23] MEDS ORDERED: NA PHOS,M-B/NA PHOS,DI-BA ENEMA 118ML PR PRN (18:00)
[2018-10-23] MEDS ORDERED: DOCUSATE SODIUM 100MG CAPSULE PO PRN (18:00)
[2018-10-23] MEDS ORDERED: DIPHENHYDRAMINE 50MG/ML VIAL IV PRN (18:00)
[2018-10-23] MEDS ORDERED: ACETAMINOPHEN 650MG/20.3ML UDC GT PRN (18:00)
[2018-10-23] MEDS ORDERED: LORAZEPAM 2MG/ML CPJ IV PRN (18:00)
[2018-10-23] MEDS ORDERED: IPRATROPIUM/ALBUTEROL 0.5-3(2.5)MG/3ML NEB HHN PRN (18:00)
[2018-10-23] MEDS ORDERED: ACETAMINOPHEN 650MG SUPP PR PRN (18:00)
[2018-10-23] MEDS ORDERED: IPRATROPIUM/ALBUTEROL 0.5-3(2.5)MG/3ML NEB INH PRN (18:00)
[2018-10-23] MEDS ORDERED: MAGNESIUM/ALUMINUM HYDROXIDE/SIMETHICONE 30ML UDC PO PRN (18:00)
[2018-10-23] MEDS ORDERED: ONDANSETRON HCL 4MG/2ML INJ IV PRN (18:00)
[2018-10-23] MEDS ORDERED: CLONIDINE 0.1MG TABLET PO PRN (18:00)
[2018-10-23] MEDS ORDERED: ACETAMINOPHEN 325MG TABLET PO PRN (18:00)
[2018-10-23] MEDS: ENOXAPARIN 40MG/0.4ML SYR SUBCUT SCH (18:49)
[2018-10-23 18:52] VITALS: BP 64/33
[2018-10-23] MEDS: SODIUM CHLORIDE 0.9% 1,000 ML IV SCH (18:53)
[2018-10-23 19:40] VITALS: BP 66/51
[2018-10-23 20:00] VITALS: BP 66/51
[2018-10-23] MEDS ORDERED: SODIUM POLYSTYRENE SULFONATE 15 G/60 ML BOT NG NR (20:30)
[2018-10-23] MEDS: IPRATROPIUM/ALBUTEROL 0.5-3(2.5)MG/3ML NEB INH SCH (21:50)
[2018-10-23] MEDS ORDERED: ALBUMIN HUMAN 25GM/100ML (25%) IV SCH (23:30)
[2018-10-24] VITALS: BP 48/32
[2018-10-24] MEDS: IPRATROPIUM/ALBUTEROL 0.5-3(2.5)MG/3ML NEB INH SCH ×3 (01:29→13:32)
[2018-10-24] MEDS: PIPERACILLIN/TAZ 3.375G PREMIX 50 ML IV SCH ×4 (01:44→20:15)
[2018-10-24] MEDS: SODIUM CHLORIDE 0.9% INJ 3ML FLUSH IVF SCH ×2 (01:45→14:34)
[2018-10-24 08:00] VITALS: BP 106/37
[2018-10-24 09:12] LABS: BG BASE EXCESS -7.7 mmol/L (-2.0-2.0); BG CARBOXYHEMOGLOBIN 0.5 % (0.5-1.5); BG DEOXYHEMOGLOBIN 29.9 % (0.0-5.0); BG FRACTION INSPIRED OXYGEN 100; BG HCO3 ACT 19.7 mmol/L (22.0-26.0); BG METHEMOGLOBIN 0.3 % (0.0-1.5); BG OXYGEN SATURATION 69.9 % (92.0-98.5); BG OXYHEMOGLOBIN 69.3 % (94.0-97.0); BG PH 7.232 (7.350-7.450); BG SAMPLE SITE LEFT RADIAL; BG VENT MODE MASK - NRB
[2018-10-24 09:43] LABS: CHLORIDE 105 mEq/L (98-107)
[2018-10-24 09:51] LABS: LDL CHOLESTEROL 51 mg/dL (5-100); PHOSPHORUS 6.3 mg/dL (2.5-4.9)
[2018-10-24 09:53] LABS: HDL CHOLESTEROL 27 mg/dL (40-59)
[2018-10-24] MEDS: SODIUM CHLORIDE 0.9% 1,000 ML IV SCH ×2 (11:03→17:44)
[2018-10-24 12:00] VITALS: BP 72/12
[2018-10-24 12:03] LABS: HEMATOCRIT. 34.3 % (36.0-48.0); HEMOGLOBIN. 10.4 g/dL (12.0-16.0); MEAN CORPUSCULAR HEMOGLOBIN 27.7 pg (28.0-32.0); MEAN PLATELET VOLUME 8.1 fl (7.4-10.4); PLATELET 332 x1000/uL (130-400); RED BLOOD CELL COUNT 3.77 mill/uL (4.2-5.4); RED CELL DISTRIBUTION WIDTH 17.6 % (11.6-14.6)
[2018-10-24 13:50] LABS: PLATELET ESTIMATE NORMAL
[2018-10-24] MEDS: ENOXAPARIN 40MG/0.4ML SYR SUBCUT SCH (16:43)
[2018-10-24] MEDS ORDERED: VANCOMYCIN 750 MG PREMIX 150 ML IV SCH (22:00)
== END 2018-10-24 21:00 | disposition expired | DRG 871 ==
LOC: ER 10:52 → 6EST 13:04 → EDBEDREQ 13:06 → EDBEDREQTM 13:06 → ENRESERV 13:27 → 6EST 17:27
PROVIDERS: ADMIT Family Medicine; ATTEND Family Medicine
DX: A41.9 Sepsis, unspecified organism (principal); L89.154 Pressure ulcer of sacral region, stage 4; R65.21 Severe sepsis with septic shock; E43 Unspecified severe protein-calorie malnutrition; J69.0 Pneumonitis due to inhalation of food and vomit; G93.41 Metabolic encephalopathy; J96.01 Acute respiratory failure with hypoxia; E87.1 Hypo-osmolality and hyponatremia; C78.02 Secondary malignant neoplasm of left lung; C78.01 Secondary malignant neoplasm of right lung; N17.9 Acute kidney failure, unspecified; L89.620 Pressure ulcer of left heel, unstageable; L89.610 Pressure ulcer of right heel, unstageable; D64.9 Anemia, unspecified; Z66 Do not resuscitate; R22.2 Localized swelling, mass and lump, trunk; Z51.5 Encounter for palliative care; E11.9 Type 2 diabetes mellitus without complications; C50.919 Malignant neoplasm of unspecified site of unspecified female breast; E87.5 Hyperkalemia; E86.0 Dehydration; R62.7 Adult failure to thrive; Z86.711 Personal history of pulmonary embolism; Z86.718 Personal history of other venous thrombosis and embolism; Z87.891 Personal history of nicotine dependence; Z68.23 Body mass index [BMI] 23.0-23.9, adult; Z88.1 Allergy status to other antibiotic agents
CPT/HCPCS: 36415; 36600; 71045; 80048; 80061; 82140; 82375; 82805; 83605; 83735; 83880; 84100; 84145; 84443; 84484; 93005; 94640; 96365; 99291; J1650; J1956; J2270; J2405; J2543; J3370; J3490; J7030; J7060; J7611; J7620; P9047